=== PATIENT | male | born 1995 | race Caucasian/White ===

== ENCOUNTER 2017-08-05 13:42 | Emergency (ER) | payer BC, OTHER ==
[~2017-08-05] VITALS: Ht 177.8 cm; Wt 105.4 kg
[2017-08-05 13:53] VITALS: BP 135/93
[2017-08-05] MEDS ORDERED: SODIUM CHLORIDE 0.9% 1,000 ML IV ONE (15:03)
[2017-08-05] MEDS ORDERED: DIPHENHYDRAMINE 50 MG/ML, 1ML ONE (15:11)
[2017-08-05] MEDS ORDERED: METOCLOPRAMIDE 5 MG/ML, 2ML ONE (15:11)
[2017-08-05] MEDS ORDERED: KETOROLAC 30 MG/1 ML ONE (15:11)
[2017-08-05 15:17] LABS: HEMATOCRIT 44.3 % (39.2-51.8); HEMOGLOBIN 14.9 g/dL (13.7-18.0); WHITE BLOOD COUNT 2.9 x10^3/uL (3.4-10)
[2017-08-05] MEDS ORDERED: DIPHENHYDRAMINE 50 MG/ML, 1ML IVPush ONE (15:30)
[2017-08-05] MEDS ORDERED: METOCLOPRAMIDE 5 MG/ML, 2ML IVPush ONE (15:30)
[2017-08-05] MEDS ORDERED: SODIUM CHLORIDE FLUSH 10ML SYR IVF ONE (15:30)
[2017-08-05] MEDS ORDERED: SODIUM CHLORIDE 0.9% 1,000ML IVBOLUS ONE (15:30)
[2017-08-05] MEDS ORDERED: KETOROLAC 30 MG/1 ML IVPush ONE (15:30)
[2017-08-05 15:34] LABS: BLOOD UREA NITROGEN 10 mg/dL (7-18)
== END 2017-08-05 16:35 | disposition home or self-care (01) ==
LOC: ED 16:21
DX: G43.909 Migraine, unspecified, not intractable, without status migrainosus (principal); J32.2 Chronic ethmoidal sinusitis; J32.0 Chronic maxillary sinusitis
CPT/HCPCS: 36415; 70450; 80048; 82040; 85025; 96361; 96374; 96375; 99285; J1200; J1885; J2765; J7030